=== PATIENT | male | born 1965 | race Caucasian/White ===

== ENCOUNTER 2016-09-17 10:47 | Emergency (ER) | payer SELFPAY ==
[2016-09-17 10:55] VITALS: BP 164/99; PULSE 88; TEMP 98.4; BMI 30.5
[2016-09-17] MEDS ORDERED: KETOROLAC TROMETHAMINE 30 MG/1 ML VIAL IM ONE (11:16)
[2016-09-17] MEDS ORDERED: KETOROLAC TROMETHAMINE 30 MG/1 ML VIAL ONE (11:20)
--- NOTE | 2016-09-17 11:22 | PDOC ---
"History of Present Illness - General Chief Complaint: Back Pain Stated Complaint: BACK PAIN Time Seen by Provider: 09/17/16 10:50 History Source: Patient Exam Limitations: No Limitations - History of Present Illness Initial Comments: 09/17/16 11:16 51 yo M with h/o spinal fusion many years ago ( 20 yrs ) S1/ S@,and lower lumbar region here today with worsening back pain. surgeon was Billy Ferreira at [facility]. no f/c no new weakness or numbness. does have paresthesia in hands. pain mostly lower back radiating down left leg. worse with movement and walking, unable to find comfortable position. no bowel bladder issues, . unsure of any aggravating event or injury. pain worsened last night. but has had for a week. not currently on any narcotics or muscle relaxers, taking aleve last pm 11 pm. minimal relief. Past History - Past Medical History Allergies/Adverse Reactions: Allergies Allergy/AdvReac Type Severity Reaction Status Date / Time No Known Allergies Allergy Verified 09/17/16 10:48 Home Medications: Ambulatory Orders Diazepam [Valium] 5 mg PO ONCE PRN #15 tablet MDD 3 09/17/16 Ibuprofen 600 mg PO TID PRN #60 tablet 09/17/16 Other medical history: PT DENIES - Surgical History Other Surgical History: 09/17/16 11:20 spinal fusion - Psycho/Social/Smoking Cessation Hx Anxiety: No Suicidal Ideation: No Smoking History: Never smoked Hx Alcohol Use: Yes (OCCASIONAL) Drug/Substance Use Hx: No Substance Use Type: None Review of Systems - Review of Systems Constitutional: No: Chills, Diaphoresis HEENTM: No: Blurred Vision Respiratory: No: Orthopnea Cardiac (ROS): No: Chest Pain, Edema ABD/GI: No: Abdominal Distended, Constipated : No: Burning, Dysuria Musculoskeletal: Yes: Back Pain. No: Joint Pain, Muscle Pain, Muscle Weakness, Neck Pain Neurological: No: Headache, Numbness All Other Systems: Reviewed and Negative *Physical Exam - Vital Signs Last Vital Signs Temp Pulse Resp BP Pulse Ox 98.4 F 88 18 164/99 97 09/17/16 10:47 09/17/16 10:47 09/17/16 10:47 09/17/16 10:47 09/17/16 10:47 - Physical Exam General Appearance: Yes: Nourished, Appropriately Dressed Neck: positive: Trachea midline. negative: Tender Respiratory/Chest: positive: Lungs Clear, Normal Breath Sounds. negative: Chest Tender Cardiovascular: positive: Regular Rhythm, Regular Rate, S1, S2 Gastrointestinal/Abdominal: positive: Normal Bowel Sounds, Flat, Soft. negative : Increased Bowel Sounds Musculoskeletal: positive: Normal Inspection, Other. negative: CVA Tenderness, Vertebral Tenderness Extremity: positive: Normal Capillary Refill (paraspinal m. spasm left latera lumbar spin region. no mildline vetebral tendernss. ), Normal Inspection. negative: Normal Range of Motion Integumentary: positive: Normal Color, Dry, Warm Neurologic: positive: Fully Oriented, Alert, Normal Mood/Affect, Motor Strength 5/5, Other (bilat lower extremity strenth 5/5 , sensation intact throughout. ) Medical Decision Making - Medical Decision Making 09/17/16 11:23 51 yo m with h/o spinal fusion here with low back pain exacerbation x one week. no relief with naproxen. normal neurological and lower extremity exam. no signs of nuero compromise. plan nsaids, muscle relaxers. dc home told to follow up with spinal surgeon. 09/17/16 11:33 performed I STOP report [facility] | Reference #: [id number]. no recent narcotic or controlled substance prescriptions. given rx for valium 5mg #15 no refills, and motrin 600 mg #60. *DC/Admit/Observation/Transfer Diagnosis at time of Disposition: Low back strain - Discharge Dispostion Condition at time of disposition: Stable Admit: No - Prescriptions Prescriptions: Ibuprofen 600 mg PO TID PRN #60 tablet PRN Reason: Pain Diazepam [Valium] 5 mg PO ONCE PRN #15 tablet MDD 3 PRN Reason: Pain - Patient Instructions Printed Discharge Instructions: Back Pain (Alternative Therapy), Low Back Pain , DI for Back Strain or Sprain Additional Instructions: take motrin 600 mg every 8 hours as needed for back spasm. you can take valium 5mg every 8 hours as needed for muscle spasm. you should not drive or drink alcohol after taking valium . follow up with your primary doctor. you should also follow up with your spine surgeon, call to schedule. - Post Discharge Activity Work/School Note: Back to Work"
== END 2016-09-17 11:49 | disposition home or self-care (01) ==
LOC: FER 10:47
PROC: 3E0233Z Introduction of Anti-inflammatory into Muscle, Percutaneous Approach (ICD-10-PCS; principal; 2016-09-17)
DX: S39.012A Strain of muscle, fascia and tendon of lower back, initial encounter (principal); X58.XXXA Exposure to other specified factors, initial encounter; Y93.9 Activity, unspecified; Y92.9 Unspecified place or not applicable
CPT/HCPCS: 99282-25